=== PATIENT | female | born 1950 | race Caucasian/White ===

== ENCOUNTER → 2016-09-08 | Outpatient (CLI) | payer OTHER ==
[~2016-09-08] MED LIST: ACCURETIC 25 MG1 TAB PO; ASPIRIN 81M81 MG/TA2 PO; CYMBALTA 30MG30 MG PO; FEOSOL45 MG PO; FOLIC ACID 11 MG/TA1 PO; PHENERGAN25 MG RC; PROTONIX 40MG T40 MG PO; TURMERIC500 MG PO; ULTRAM 50MG TAB50 MG PO; VTAMINC250TA PO; ZESTRIL 20MG TA20 MG PO
[2016-09-08 10:48] LABS: ALBUMIN 3.9 gm/dL (3.5-5.0); BILIRUBIN,TOTAL 0.8 mg/dL (0.0-1.0); CALCIUM 8.9 mg/dL (8.4-10.2); CREATININE, serum 1.07 mg/dL (0.52-1.25)
== END ==
LOC: COL.LAB 09:59
PROVIDERS: Nurse Practitioner
DX: I10 Essential (primary) hypertension (principal)

== ENCOUNTER → 2017-01-08 | Outpatient (CLI) | payer MEDICARE, OTHER | LOC: COL.RAD 11:49 | DX: M79.89 Other specified soft tissue disorders (principal); Z96.642 Presence of left artificial hip joint ==

== ENCOUNTER 2017-01-10 12:25 | Observation (INO) | payer MEDICARE, OTHER ==
[~2017-01-10] VITALS: Ht 172.7 cm; Wt 145.7 kg
[2017-01-10] VITALS (10 sets, daily range): BP systolic 148–187; BP diastolic 63–89; PULSE 76–94; TEMP 97.3–97.9
[2017-01-10] MEDS ORDERED: FOLIC ACID 11 MG/TA1 PO (12:33)
[2017-01-10] MEDS ORDERED: CYMBALTA 30MG30 MG PO (12:34)
[2017-01-10] MEDS ORDERED: FEOSOL45 MG PO (12:34)
[2017-01-10] MEDS ORDERED: ACCURETIC 25 MG1 TAB PO (12:34)
[2017-01-10] MEDS ORDERED: TURMERIC500 MG PO (12:34)
[2017-01-10] MEDS ORDERED: VTAMINC250TA PO (12:35)
[2017-01-10] MEDS ORDERED: ASPIRIN 81M81 MG/TA2 PO (12:35)
[2017-01-10 14:02] LABS: BASO # 0.1 (0.0-0.2); BASO % 0.7 % (0.0-2.0); EOS % 0.6 % (0-4.0); GRAN # 4.8 (1.4-6.5); GRAN % 71.6 % (42.2-75.2); LYMPH # 1.3 (1.2-3.4); LYMPH % 19.1 % (20.0-51.0); MEAN CELL VOLUME 66 fl (80.0-100.0); MEAN CORPUSCULAR HGB CONC 29 g/dl (33.0-37.0); MEAN PLATELET VOLUME 8.3 fl (7.4-10.4); MONO # 0.5 (0.1-0.6); MONO % 7.6 % (1.7-9.3); PLATELET COUNT 344 K/mm3 (130-400); RED BLOOD COUNT 3.66 M/mm3 (4.10-5.30); REDCELL DISTRIBUTION WIDTH-CV 20.2 % (11.5-14.5); WHITE BLOOD COUNT 6.7 K/mm3 (4.8-10.8)
[2017-01-10 14:10] LABS: ADJUSTED CALCIUM 9.1 mg/dL (8.4-10.2); ALANINE AMINOTRANSFERASE 17 U/L (9-52); ALBUMIN 3.6 gm/dL (3.5-5.0); ALKALINE PHOSPHATASE 90 U/L (50-136); ANION GAP 9 mmol/L (7-16); BILIRUBIN,TOTAL 0.5 mg/dL (0.0-1.0); BLOOD UREA NITROGEN 23 mg/dL (7-17); CALCIUM 8.8 mg/dL (8.4-10.2); CARBON DIOXIDE 24 mmol/L (22-30); CHLORIDE 101 mmol/L (98-107); CREATININE, serum 1.34 mg/dL (0.52-1.25); GLUCOSE 101 mg/dL (74-106); POTASSIUM 3.8 mmol/L (3.4-5.0); SODIUM 134 mmol/L (137-145); TOTAL PROTEIN 7.9 gm/dL (6.4-8.2)
[2017-01-10 14:23] LABS: TROPONIN-I < 0.012 ng/mL (0.000-0.034)
[2017-01-10] MEDS ORDERED: PHENERGAN25 MG RC (14:36)
[2017-01-10] MEDS ORDERED: ULTRAM 50MG TAB50 MG PO (14:36)
[2017-01-10 14:43] LABS: HEMATOCRIT 24.1 % (37.0-47.0); MEAN CORPUSCULAR HEMOGLOBIN 19 pg (27.0-31.0)
[2017-01-10 15:48] LABS: RETIC % 1.6 % (0.5-3.52)
[2017-01-10 16:03] LABS: TOTAL IRON BINDING CAPACITY 283 ug/dL (265-497)
[2017-01-10 16:29] LABS: FERRITIN 21 ng/mL (11-264)
[2017-01-10 17:51] LABS: LACTATE DEHYDROGENASE 409 U/L (313-618)
[2017-01-11] VITALS (13 sets, daily range): BP systolic 128–174; BP diastolic 58–79; PULSE 72–90; TEMP 97–98.2
[2017-01-11 07:53] LABS: BASO # 0.1 (0.0-0.2); EOS # 0.1 (0.0-0.7); EOS % 2.2 % (0-4.0); GRAN # 3.6 (1.4-6.5); GRAN % 61.3 % (42.2-75.2); LYMPH # 1.6 (1.2-3.4); LYMPH % 27.2 % (20.0-51.0); MEAN CELL VOLUME 70 fl (80.0-100.0); MEAN CORPUSCULAR HGB CONC 30 g/dl (33.0-37.0); MEAN PLATELET VOLUME 8.4 fl (7.4-10.4); MONO # 0.5 (0.1-0.6); PLATELET COUNT 303 K/mm3 (130-400); RED BLOOD COUNT 3.93 M/mm3 (4.10-5.30); REDCELL DISTRIBUTION WIDTH-CV 22.1 % (11.5-14.5); WHITE BLOOD COUNT 5.9 K/mm3 (4.8-10.8)
[2017-01-11 08:00] LABS: CALCIUM 8.7 mg/dL (8.4-10.2); CREATININE, serum 1.2 mg/dL (0.52-1.25); HEMATOCRIT 27.4 % (37.0-47.0); HEMOGLOBIN 8.2 g/dl (12.5-16.0); MEAN CORPUSCULAR HEMOGLOBIN 21 pg (27.0-31.0); POTASSIUM 3.8 mmol/L (3.4-5.0)
[2017-01-11 12:00] LABS: PH 5 (5-8); SQUAMOUS EPITHELIAL 0-2 /hpf; URINE APPEARANCE Clear; URINE BACTERIA None Seen /hpf; URINE BILIRUBIN Negative (NEGATIVE); URINE BLOOD Negative (NEGATIVE); URINE COLOR Straw; URINE GLUCOSE Negative (NEGATIVE); URINE KETONE Negative (NEGATIVE); URINE RBC 0-2 /hpf; URINE UROBILINOGEN Negative (NEGATIVE); URINE WBC 0-2 /hpf
[2017-01-12 03:52] VITALS: BP 151/74; PULSE 78; TEMP 97.3
[2017-01-12 07:03] LABS: BASO # 0.1 (0.0-0.2); BASO % 1.3 % (0.0-2.0); EOS # 0.2 (0.0-0.7); EOS % 3.2 % (0-4.0); GRAN # 3.3 (1.4-6.5); GRAN % 60.8 % (42.2-75.2); LYMPH # 1.5 (1.2-3.4); LYMPH % 27.3 % (20.0-51.0); MEAN CELL VOLUME 69 fl (80.0-100.0); MEAN CORPUSCULAR HGB CONC 30 g/dl (33.0-37.0); MEAN PLATELET VOLUME 8.5 fl (7.4-10.4); MONO # 0.4 (0.1-0.6); MONO % 7.2 % (1.7-9.3); PLATELET COUNT 331 K/mm3 (130-400); RED BLOOD COUNT 4.25 M/mm3 (4.10-5.30); REDCELL DISTRIBUTION WIDTH-CV 22.4 % (11.5-14.5); WHITE BLOOD COUNT 5.4 K/mm3 (4.8-10.8)
[2017-01-12 07:07] LABS: HEMATOCRIT 29.2 % (37.0-47.0); HEMOGLOBIN 8.8 g/dl (12.5-16.0); MEAN CORPUSCULAR HEMOGLOBIN 21 pg (27.0-31.0)
[2017-01-12 07:18] LABS: CALCIUM 8.9 mg/dL (8.4-10.2); CREATININE, serum 1.12 mg/dL (0.52-1.25); POTASSIUM 4.4 mmol/L (3.4-5.0)
[2017-01-12 08:09] VITALS: BP 147/71; PULSE 75; TEMP 97.8
[2017-01-12] MEDS ORDERED: PROTONIX 40MG T40 MG PO (10:17)
[2017-01-12] MEDS ORDERED: ACCURETIC 25 MG1 TAB PO (10:23)
[2017-01-12] MEDS ORDERED: ZESTRIL 20MG TA20 MG PO (10:24)
[2017-01-12] MEDS ORDERED: FEOSOL45 MG PO (10:25)
== END 2017-01-12 14:40 | disposition home or self-care (01) ==
LOC: COL.ER 12:25 → MEDICAL 15:05
PROVIDERS: Emergency Medicine; Internal Medicine; Physician Assistant
DX: Z12.11 Encounter for screening for malignant neoplasm of colon (principal); K62.1 Rectal polyp; D50.0 Iron deficiency anemia secondary to blood loss (chronic); K22.2 Esophageal obstruction; K44.9 Diaphragmatic hernia without obstruction or gangrene; K22.5 Diverticulum of esophagus, acquired; K21.0 Gastro-esophageal reflux disease with esophagitis; Z90.710 Acquired absence of both cervix and uterus; R55 Syncope and collapse; I08.3 Combined rheumatic disorders of mitral, aortic and tricuspid valves; F41.9 Anxiety disorder, unspecified; F32.9 Major depressive disorder, single episode, unspecified; M19.90 Unspecified osteoarthritis, unspecified site; E66.9 Obesity, unspecified; I12.9 Hypertensive chronic kidney disease with stage 1 through stage 4 chronic kidney disease, or unspecified chronic kidney disease; N18.9 Chronic kidney disease, unspecified; Z82.49 Family history of ischemic heart disease and other diseases of the circulatory system; Z82.3 Family history of stroke; Z96.652 Presence of left artificial knee joint; Z96.642 Presence of left artificial hip joint
CPT/HCPCS: 99223-AI; 99232-AI; G0378; J2250; J2270; J3010; J7030; J7050; P9016

== ENCOUNTER 2017-02-16 16:45 | Inpatient (IN) | payer MEDICARE, OTHER ==
[~2017-02-16] VITALS: Ht 172.7 cm; Wt 139.7 kg
[2017-02-16] MEDS ORDERED: AMOXICILLIN875 MG PO (17:25)
[2017-02-16] MEDS ORDERED: PRINIVIL20 MG PO (17:26)
[2017-02-16] MEDS ORDERED: HCTZ12.5TAB PO (17:26)
[2017-02-16 17:57] LABS: BASO # 0.1 (0.0-0.2); BASO % 0.9 % (0.0-2.0); EOS # 0.1 (0.0-0.7); EOS % 1.4 % (0-4.0); GRAN # 5.5 (1.4-6.5); GRAN % 70.1 % (42.2-75.2); LYMPH # 1.6 (1.2-3.4); LYMPH % 20.4 % (20.0-51.0); MEAN CELL VOLUME 73 fl (80.0-100.0); MEAN CORPUSCULAR HGB CONC 30 g/dl (33.0-37.0); MONO # 0.5 (0.1-0.6); MONO % 6.9 % (1.7-9.3); PLATELET COUNT 292 K/mm3 (130-400); RED BLOOD COUNT 3.76 M/mm3 (4.10-5.30); REDCELL DISTRIBUTION WIDTH-CV 24.3 % (11.5-14.5); WHITE BLOOD COUNT 7.9 K/mm3 (4.8-10.8)
[2017-02-16 17:58] LABS: HEMATOCRIT 27.6 % (37.0-47.0); HEMOGLOBIN 8.2 g/dl (12.5-16.0); MEAN CORPUSCULAR HEMOGLOBIN 22 pg (27.0-31.0)
[2017-02-16 18:11] LABS: ADJUSTED CALCIUM 9.4 mg/dL (8.4-10.2); ALANINE AMINOTRANSFERASE 12 U/L (9-52); ALBUMIN 3.8 gm/dL (3.5-5.0); ALKALINE PHOSPHATASE 96 U/L (50-136); ANION GAP 13 mmol/L (7-16); BILIRUBIN,TOTAL 0.7 mg/dL (0.0-1.0); BLOOD UREA NITROGEN 51 mg/dL (7-17); CALCIUM 9.2 mg/dL (8.4-10.2); CARBON DIOXIDE 21 mmol/L (22-30); CHLORIDE 104 mmol/L (98-107); CREATININE, serum 2.31 mg/dL (0.52-1.25); GLUCOSE 87 mg/dL (74-106); MAGNESIUM 2.1 mg/dL (1.6-2.3); POTASSIUM 4.4 mmol/L (3.4-5.0); SODIUM 137 mmol/L (137-145); TOTAL PROTEIN 8.5 gm/dL (6.4-8.2)
[2017-02-16 18:23] LABS: B-TYPE NATRIURETIC PEPTIDE 520 pg/mL (0-125)
[2017-02-16 18:24] LABS: TROPONIN-I < 0.012 ng/mL (0.000-0.034)
[2017-02-16] MEDS ORDERED: ACCURETIC 25 MG1 TAB PO (20:01)
[2017-02-16] MEDS ORDERED: ACCUPRIL20TAB PO (20:01)
[2017-02-16] MEDS ORDERED: PRILOTC PO (20:05)
[2017-02-16 21:16] VITALS: BP 142/52; PULSE 85; TEMP 98
[2017-02-16 23:18] LABS: PH 5 (5-8); URINE APPEARANCE Hazy; URINE BACTERIA Rare /hpf; URINE BILIRUBIN Negative (NEGATIVE); URINE BLOOD Negative (NEGATIVE); URINE COLOR Yellow; URINE GLUCOSE Negative (NEGATIVE); URINE KETONE Negative (NEGATIVE); URINE RBC 0-2 /hpf; URINE WBC 0-2 /hpf
[2017-02-16 23:34] LABS: HEMATOCRIT 25.5 % (37.0-47.0); HEMOGLOBIN 7.7 g/dl (12.5-16.0)
[2017-02-17] VITALS (9 sets, daily range): BP systolic 132–154; BP diastolic 47–67; PULSE 78–98; TEMP 98–98.5
[2017-02-17 06:00] LABS: BASO # 0.1 (0.0-0.2); EOS # 0.2 (0.0-0.7); EOS % 3.1 % (0-4.0); GRAN # 2.6 (1.4-6.5); GRAN % 50.4 % (42.2-75.2); LYMPH # 1.8 (1.2-3.4); LYMPH % 35.3 % (20.0-51.0); MEAN CELL VOLUME 72 fl (80.0-100.0); MEAN CORPUSCULAR HGB CONC 30 g/dl (33.0-37.0); MEAN PLATELET VOLUME 8.5 fl (7.4-10.4); MONO # 0.5 (0.1-0.6); PLATELET COUNT 268 K/mm3 (130-400); REDCELL DISTRIBUTION WIDTH-CV 24.1 % (11.5-14.5); WHITE BLOOD COUNT 5.1 K/mm3 (4.8-10.8)
[2017-02-17 06:05] LABS: INR 1.2 (0.8-3.0)
[2017-02-17 06:17] LABS: HEMATOCRIT 23.7 % (37.0-47.0); HEMOGLOBIN 7.2 g/dl (12.5-16.0); MEAN CORPUSCULAR HEMOGLOBIN 22 pg (27.0-31.0)
[2017-02-17 06:23] LABS: CALCIUM 8.7 mg/dL (8.4-10.2); CREATININE, serum 1.91 mg/dL (0.52-1.25); MAGNESIUM 2.1 mg/dL (1.6-2.3); POTASSIUM 4.4 mmol/L (3.4-5.0)
[2017-02-17 06:45] LABS: THYROID STIMULATING HORMONE 1.53 uIU/mL (0.465-4.680)
[2017-02-17 10:48] LABS: HEMATOCRIT 23.8 % (37.0-47.0); HEMOGLOBIN 7.2 g/dl (12.5-16.0)
[2017-02-17] MEDS ORDERED: NORVASC 5MG5 MG/TAB PO (11:26)
[2017-02-17 19:46] LABS: HEMATOCRIT 30.1 % (37.0-47.0); HEMOGLOBIN 9.2 g/dl (12.5-16.0)
== END 2017-02-17 20:04 | disposition home or self-care (01) | DRG 812 ==
LOC: COL.ER 16:45 → MEDICAL 19:22
PROVIDERS: Emergency Medicine; Family Medicine; Internal Medicine
DX: D50.9 Iron deficiency anemia, unspecified (principal); N17.9 Acute kidney failure, unspecified; N39.0 Urinary tract infection, site not specified; I10 Essential (primary) hypertension; E86.0 Dehydration; Z96.652 Presence of left artificial knee joint; Z96.642 Presence of left artificial hip joint
CPT/HCPCS: 99222-AI; 99239; C9113; J2550; J7030; J7040; P9016

== ENCOUNTER 2017-05-04 11:21 | Day surgery (SDC) | payer MEDICARE ==
[2017-05-04] VITALS (10 sets, daily range): BP systolic 140–199; BP diastolic 65–102; PULSE 83–89; TEMP 98.5
[~2017-05-04] VITALS: Ht 172.8 cm; Wt 136.0 kg
[~2017-05-04 11:21] MED LIST changes: +ACCUPRIL20TAB PO; +AMOXICILLIN875 MG PO; +HCTZ12.5TAB PO; +NORVASC 5MG5 MG/TAB PO; +PRILOTC PO; +PRINIVIL20 MG PO
[2017-05-04] MEDS ORDERED: FEOSOL45 MG (11:59)
[2017-05-04 12:00] LABS: MEAN CELL VOLUME 85 fl (80.0-100.0); MEAN CORPUSCULAR HGB CONC 32 g/dl (33.0-37.0); MEAN PLATELET VOLUME 8.2 fl (7.4-10.4); PLATELET COUNT 286 K/mm3 (130-400); WHITE BLOOD COUNT 8.1 K/mm3 (4.8-10.8)
[2017-05-04] MEDS ORDERED: ZESTRIL40 MG PO (12:02)
[2017-05-04 12:03] LABS: HEMATOCRIT 33.3 % (37.0-47.0); HEMOGLOBIN 10.6 g/dl (12.5-16.0); MEAN CORPUSCULAR HEMOGLOBIN 27 pg (27.0-31.0)
[2017-05-04 12:06] LABS: CALCIUM 9.4 mg/dL (8.4-10.2); CREATININE, serum 0.84 mg/dL (0.52-1.25); POTASSIUM 4.2 mmol/L (3.4-5.0)
[2017-05-04 12:10] LABS: INR 1.1 (0.8-3.0); PROTHROMBIN TIME 12.9 SECONDS (9.7-12.8)
[2017-05-04] MEDS ORDERED: ASPIRIN 81M81 MG/TA2 PO (15:21)
[2017-05-04] MEDS ORDERED: IMDUR 60MG60 MG/TAB PO (15:22)
== END 2017-05-04 17:00 | disposition home or self-care (01) ==
LOC: COL.CAR 11:21
PROVIDERS: Internal Medicine Interventional Cardiology
DX: I25.10 Atherosclerotic heart disease of native coronary artery without angina pectoris (principal); R94.39 Abnormal result of other cardiovascular function study; I10 Essential (primary) hypertension; Z86.73 Personal history of transient ischemic attack (TIA), and cerebral infarction without residual deficits; Z82.49 Family history of ischemic heart disease and other diseases of the circulatory system; Z83.3 Family history of diabetes mellitus
CPT/HCPCS: J0360; J2250; J3010; Q9967

== ENCOUNTER → 2017-05-24 | Outpatient (CLI) | payer MEDICARE, OTHER ==
[~2017-05-24] MED LIST changes: +FEOSOL45 MG; +IMDUR 60MG60 MG/TAB PO; +ZESTRIL40 MG PO
== END ==
LOC: COL.RAD 05-01 10:00
DX: R55 Syncope and collapse (principal)
CPT/HCPCS: J7050; Q9967

== ENCOUNTER → 2017-06-19 | Outpatient (CLI) | payer MEDICARE | LOC: COL.RAD 16:24 | DX: R09.89 Other specified symptoms and signs involving the circulatory and respiratory systems (principal); R05 Cough; Z86.79 Personal history of other diseases of the circulatory system; J06.9 Acute upper respiratory infection, unspecified ==

== ENCOUNTER → 2017-08-08 | Outpatient (CLI) | payer MEDICARE ==
[~2017-08-08] VITALS: Ht 170.2 cm; Wt 137.0 kg
[~2017-08-08] MED LIST changes: +VITAMIN D3400 I1 PO
[2017-08-08 09:26] VITALS: BP 134/62; PULSE 92
== END ==
LOC: LIGHT 08:52
DX: M15.9 Polyosteoarthritis, unspecified (principal); I10 Essential (primary) hypertension; F33.9 Major depressive disorder, recurrent, unspecified; K21.9 Gastro-esophageal reflux disease without esophagitis; Z68.42 Body mass index [BMI] 45.0-49.9, adult; Z71.3 Dietary counseling and surveillance
CPT/HCPCS: G0463

== ENCOUNTER → 2017-08-13 | Outpatient (CLI) | payer MEDICARE | LOC: COL.RAD 16:56 | DX: M25.562 Pain in left knee (principal); Z96.652 Presence of left artificial knee joint ==

== ENCOUNTER → 2017-08-27 | Outpatient (CLI) | payer MEDICARE | LOC: LIGHT 14:51 | DX: Z01.818 Encounter for other preprocedural examination (principal) ==

== ENCOUNTER → 2017-08-27 | Outpatient (CLI) | payer MEDICARE | LOC: LIGHT | DX: Z01.89 Encounter for other specified special examinations (principal) ==

== ENCOUNTER → 2017-08-28 | Outpatient (CLI) | payer MEDICARE ==
[~2017-08-28] VITALS: Ht 170.2 cm; Wt 140.2 kg
[2017-08-28 16:27] VITALS: BP 152/88; PULSE 84
== END ==
LOC: LIGHT
DX: M15.9 Polyosteoarthritis, unspecified (principal); I10 Essential (primary) hypertension; F33.9 Major depressive disorder, recurrent, unspecified; K21.9 Gastro-esophageal reflux disease without esophagitis; Z68.42 Body mass index [BMI] 45.0-49.9, adult; Z71.3 Dietary counseling and surveillance
CPT/HCPCS: G0463

== ENCOUNTER → 2017-09-18 | Outpatient (CLI) | payer MEDICARE ==
[~2017-09-18] VITALS: Ht 170.2 cm; Wt 137.7 kg
[~2017-09-18] MED LIST changes: +PHENTERMINE15 MG PO
[2017-09-18 15:13] VITALS: BP 118/60; PULSE 88
== END ==
LOC: LIGHT 08:58
DX: M15.9 Polyosteoarthritis, unspecified (principal); I10 Essential (primary) hypertension; F33.9 Major depressive disorder, recurrent, unspecified; K21.9 Gastro-esophageal reflux disease without esophagitis; Z68.42 Body mass index [BMI] 45.0-49.9, adult; Z71.3 Dietary counseling and surveillance
CPT/HCPCS: G0463

== ENCOUNTER → 2017-10-23 | Outpatient (CLI) | payer MEDICARE ==
[~2017-10-23] VITALS: Ht 170.2 cm; Wt 136.3 kg
[2017-10-23 14:25] VITALS: BP 130/70; PULSE 84
== END ==
LOC: LIGHT 14:10
DX: M15.9 Polyosteoarthritis, unspecified (principal); I10 Essential (primary) hypertension; F33.9 Major depressive disorder, recurrent, unspecified; K21.9 Gastro-esophageal reflux disease without esophagitis; Z68.42 Body mass index [BMI] 45.0-49.9, adult; Z71.3 Dietary counseling and surveillance
CPT/HCPCS: G0463

== ENCOUNTER 2017-11-20 10:30 | Outpatient (RCR) | payer MEDICARE | END 2017-11-25 | disposition home or self-care (01) | LOC: MKS.ESL.PT | DX: M25.562 Pain in left knee (principal); M13.0 Polyarthritis, unspecified; Z96.652 Presence of left artificial knee joint; Z96.642 Presence of left artificial hip joint; Z68.43 Body mass index [BMI] 50.0-59.9, adult | CPT/HCPCS: G8978-GP; G8979-GP ==

== ENCOUNTER → 2017-12-12 | Outpatient (CLI) | payer MEDICARE ==
[2017-12-12 15:42] LABS: BASO # 0.1 (0.0-0.2); BASO % 1.3 % (0.0-2.0); EOS # 0.1 (0.0-0.7); EOS % 1.6 % (0-4.0); GRAN # 3.8 (1.4-6.5); GRAN % 59.1 % (42.2-75.2); LYMPH # 1.8 (1.2-3.4); LYMPH % 28.8 % (20.0-51.0); MEAN CELL VOLUME 87 fl (80.0-100.0); MEAN CORPUSCULAR HGB CONC 32 g/dl (33.0-37.0); MEAN PLATELET VOLUME 8.5 fl (7.4-10.4); MONO # 0.6 (0.1-0.6); MONO % 8.9 % (1.7-9.3); PLATELET COUNT 294 K/mm3 (130-400); RED BLOOD COUNT 3.61 M/mm3 (4.10-5.30); REDCELL DISTRIBUTION WIDTH-CV 15.7 % (11.5-14.5)
[2017-12-12 15:44] LABS: HEMATOCRIT 31.4 % (37.0-47.0); HEMOGLOBIN 9.9 g/dl (12.5-16.0); MEAN CORPUSCULAR HEMOGLOBIN 27 pg (27.0-31.0)
[2017-12-12 15:47] LABS: MUCOUS Present /lpf; PH 5 (5-8); URINE APPEARANCE Hazy; URINE BACTERIA None Seen /hpf; URINE BILIRUBIN Negative (NEGATIVE); URINE BLOOD 1+ (NEGATIVE); URINE COLOR Yellow; URINE GLUCOSE Negative (NEGATIVE); URINE KETONE Negative (NEGATIVE); URINE LEUKOCYTE ESTERASE Negative (NEGATIVE); URINE NITRATE Negative (NEGATIVE); URINE PROTEIN(semi-quant) Negative (NEGATIVE); URINE RBC 0-2 /hpf
[2017-12-12 15:48] LABS: COLLECTION METHOD CLEAN CATCH
[2017-12-12 15:54] LABS: ALBUMIN 4.1 gm/dL (3.5-5.0); BILIRUBIN,TOTAL 0.4 mg/dL (0.0-1.0); CALCIUM 9.4 mg/dL (8.4-10.2); CHOLESTEROL RISK RATIO 3.9; CREATININE, serum 1.22 mg/dL (0.52-1.25); POTASSIUM 4.7 mmol/L (3.4-5.0); TOTAL PROTEIN 8.6 gm/dL (6.4-8.2)
== END ==
LOC: COL.LAB 14:54
PROVIDERS: Registered Nurse
DX: Z01.818 Encounter for other preprocedural examination (principal); I25.10 Atherosclerotic heart disease of native coronary artery without angina pectoris; M15.0 Primary generalized (osteo)arthritis; D50.8 Other iron deficiency anemias; I10 Essential (primary) hypertension; E66.01 Morbid (severe) obesity due to excess calories

== ENCOUNTER → 2017-12-15 | Outpatient (CLI) | payer MEDICARE ==
[2017-12-15 17:19] LABS: PROTHROMBIN TIME 11.2 SECONDS (9.7-12.8)
== END ==
LOC: COL.LAB 16:18
PROVIDERS: Registered Nurse
DX: Z01.818 Encounter for other preprocedural examination (principal); I25.10 Atherosclerotic heart disease of native coronary artery without angina pectoris; M15.0 Primary generalized (osteo)arthritis; I10 Essential (primary) hypertension; D50.8 Other iron deficiency anemias

== ENCOUNTER 2017-12-25 10:00 | Outpatient (RCR) | payer MEDICARE ==
[2018-01-16] MEDS ORDERED: NORVASC 5MG5 MG/TAB PO (10:53)
[2018-01-16] MEDS ORDERED: FEOSOL45 MG PO (10:55)
[2018-01-16] MEDS ORDERED: PRINIVIL20 MG PO (10:56)
[2018-01-16] MEDS ORDERED: PRAVACHOL 20MG20 MG PO (10:58)
[2018-01-16] MEDS ORDERED: FLEXERIL 1010 MG/TAB PO (11:15)
[2018-01-16] MEDS ORDERED: HCTZ12.5TAB PO (11:16)
[2018-01-24] MEDS ORDERED: MULTIPLE VITAMI1 CAP PO (09:01)
[2018-01-24] MEDS ORDERED: VITAMIN D31000 I1 PO (09:01)
== END 2018-02-25 | disposition home or self-care (01) ==
LOC: MKS.ESL.PT
DX: M25.562 Pain in left knee (principal); M79.652 Pain in left thigh; Z96.652 Presence of left artificial knee joint; Z91.81 History of falling
CPT/HCPCS: G8979-GP; G8980-GP

== ENCOUNTER → 2017-12-25 | Outpatient (CLI) | payer MEDICARE ==
[~2017-12-25] VITALS: Ht 170.2 cm; Wt 133.8 kg
[2017-12-25 13:23] VITALS: BP 120/50; PULSE 76
== END ==
LOC: LIGHT 10:50
DX: M15.9 Polyosteoarthritis, unspecified (principal); I10 Essential (primary) hypertension; F32.9 Major depressive disorder, single episode, unspecified; K21.9 Gastro-esophageal reflux disease without esophagitis; E66.01 Morbid (severe) obesity due to excess calories; Z68.42 Body mass index [BMI] 45.0-49.9, adult; Z71.3 Dietary counseling and surveillance
CPT/HCPCS: G0463

== ENCOUNTER → 2018-01-09 | Outpatient (CLI) | payer MEDICARE | LOC: LIGHT 12-31 08:55 | DX: Z01.818 Encounter for other preprocedural examination (principal) ==

== ENCOUNTER 2018-01-16 10:23 | Day surgery (SDC) | payer MEDICARE ==
[~2018-01-16] VITALS: Ht 170.2 cm; Wt 131.6 kg
[2018-01-16] VITALS (11 sets, daily range): BP systolic 120–187; BP diastolic 62–82; PULSE 82–109; TEMP 97.4–98.4
[2018-01-16] MEDS ORDERED: NORVASC 5MG5 MG/TAB PO (10:53)
[2018-01-16] MEDS ORDERED: FEOSOL45 MG PO (10:55)
[2018-01-16] MEDS ORDERED: PRINIVIL20 MG PO (10:56)
[2018-01-16] MEDS ORDERED: PRAVACHOL 20MG20 MG PO (10:58)
[2018-01-16] MEDS ORDERED: FLEXERIL 1010 MG/TAB PO (11:15)
[2018-01-16] MEDS ORDERED: HCTZ12.5TAB PO (11:16)
[2018-01-17 03:05] VITALS: BP 149/76; PULSE 92; TEMP 98.6
[2018-01-17 07:46] VITALS: BP 153/76; PULSE 96; TEMP 97.8
[2018-01-17 12:12] VITALS: BP 156/77; PULSE 90; TEMP 97.8
[2018-01-17 15:53] VITALS: BP 158/89; PULSE 97; TEMP 98.8
== END 2018-01-17 18:34 | disposition home or self-care (01) ==
LOC: SDCO 10:23 → INPTSU 10:23 → SURG 10:23 → EDSTATUS 10:45 → SURG 10:45 → INPTSU 15:51 → SDCO 01-17 18:34 → SURG 01-17 18:34
DX: K44.9 Diaphragmatic hernia without obstruction or gangrene (principal); I10 Essential (primary) hypertension; K21.9 Gastro-esophageal reflux disease without esophagitis; D64.9 Anemia, unspecified; E88.81 Metabolic syndrome and other insulin resistance; D50.9 Iron deficiency anemia, unspecified; I25.10 Atherosclerotic heart disease of native coronary artery without angina pectoris; M15.9 Polyosteoarthritis, unspecified; F32.9 Major depressive disorder, single episode, unspecified; G47.30 Sleep apnea, unspecified; I35.0 Nonrheumatic aortic (valve) stenosis; E66.01 Morbid (severe) obesity due to excess calories; Z68.42 Body mass index [BMI] 45.0-49.9, adult; Z96.652 Presence of left artificial knee joint; Z96.642 Presence of left artificial hip joint; Z90.710 Acquired absence of both cervix and uterus; Z79.82 Long term (current) use of aspirin
CPT/HCPCS: OP; J1885; J2405; J2704; J3010; J7042; J7120

== ENCOUNTER 2018-01-24 08:52 | Observation (INO) | payer MEDICARE ==
[~2018-01-24] VITALS: Ht 170.2 cm; Wt 132.7 kg
[~2018-01-24 08:52] MED LIST changes: +FLEXERIL 1010 MG/TAB PO; +PRAVACHOL 20MG20 MG PO
[2018-01-24] MEDS ORDERED: MULTIPLE VITAMI1 CAP PO (09:01)
[2018-01-24] MEDS ORDERED: VITAMIN D31000 I1 PO (09:01)
[2018-01-24 09:22] LABS: BASO # 0.1 (0.0-0.2); BASO % 0.8 % (0.0-2.0); EOS # 0.2 (0.0-0.7); EOS % 1.7 % (0-4.0); GRAN # 9.7 (1.4-6.5); GRAN % 80.2 % (42.2-75.2); HEMOGLOBIN 10.7 g/dl (12.5-16.0); LYMPH # 1.4 (1.2-3.4); LYMPH % 11.2 % (20.0-51.0); MEAN CELL VOLUME 88 fl (80.0-100.0); MEAN CORPUSCULAR HEMOGLOBIN 28 pg (27.0-31.0); MEAN CORPUSCULAR HGB CONC 32 g/dl (33.0-37.0); MEAN PLATELET VOLUME 8.7 fl (7.4-10.4); MONO # 0.7 (0.1-0.6); MONO % 5.4 % (1.7-9.3); PLATELET COUNT 378 K/mm3 (130-400); RED BLOOD COUNT 3.86 M/mm3 (4.10-5.30); REDCELL DISTRIBUTION WIDTH-CV 14.6 % (11.5-14.5)
[2018-01-24 09:23] LABS: HEMATOCRIT 33.8 % (37.0-47.0)
[2018-01-24 09:29] LABS: PARTIAL THROMBOPLASTIN TIME 29.9 SECONDS (26.0-37.0)
[2018-01-24 09:31] LABS: ALANINE AMINOTRANSFERASE 15 U/L (9-52); ALBUMIN 4.2 gm/dL (3.5-5.0); ALKALINE PHOSPHATASE 95 U/L (50-136); ANION GAP 16 mmol/L (7-16); AST,SGOT 22 U/L (15-37); BILIRUBIN,TOTAL 0.6 mg/dL (0.0-1.0); BLOOD UREA NITROGEN 46 mg/dL (7-17); CALCIUM 9.5 mg/dL (8.4-10.2); CARBON DIOXIDE 20 mmol/L (22-30); CHLORIDE 102 mmol/L (98-107); CREATININE, serum 2.04 mg/dL (0.52-1.25); GLUCOSE 105 mg/dL (74-106); MAGNESIUM 2.8 mg/dL (1.6-2.3); PHOSPHOROUS 5.2 mg/dL (2.5-4.5); POTASSIUM 5.5 mmol/L (3.4-5.0); SODIUM 137 mmol/L (137-145); TOTAL PROTEIN 8.6 gm/dL (6.4-8.2)
[2018-01-24 09:44] LABS: TROPONIN-I < 0.012 ng/mL (0.000-0.034)
[2018-01-24 10:15] LABS: MUCOUS Present /lpf; PH 5 (5-8); SQUAMOUS EPITHELIAL 0-2 /hpf; URINE APPEARANCE Clear; URINE BACTERIA None Seen /hpf; URINE BILIRUBIN Negative (NEGATIVE); URINE BLOOD Negative (NEGATIVE); URINE COLOR Yellow; URINE GLUCOSE Negative (NEGATIVE); URINE KETONE Negative (NEGATIVE); URINE LEUKOCYTE ESTERASE Negative (NEGATIVE); URINE NITRATE Negative (NEGATIVE); URINE PROTEIN(semi-quant) Negative (NEGATIVE); URINE RBC 0-2 /hpf; URINE UROBILINOGEN Negative (NEGATIVE)
[2018-01-24 10:24] LABS: COLLECTION METHOD CATHETER
[2018-01-24 14:20] VITALS: BP 126/65; PULSE 102
[2018-01-24 15:43] VITALS: BP 137/57; PULSE 95; TEMP 98
[2018-01-24 17:02] LABS: CALCIUM 8.7 mg/dL (8.4-10.2); CREATININE, serum 1.84 mg/dL (0.52-1.25); POTASSIUM 5.6 mmol/L (3.4-5.0)
[2018-01-24 20:57] VITALS: BP 123/60; PULSE 94; TEMP 97.8
[2018-01-24 22:18] VITALS: BP 135/45; PULSE 99; TEMP 98.4
[2018-01-25 04:29] VITALS: BP 142/78; PULSE 102; TEMP 98.4
[2018-01-25 07:44] LABS: BASO # 0.1 (0.0-0.2); BASO % 0.6 % (0.0-2.0); EOS # 0.3 (0.0-0.7); EOS % 2.8 % (0-4.0); GRAN # 7.6 (1.4-6.5); GRAN % 73.3 % (42.2-75.2); LYMPH # 1.6 (1.2-3.4); LYMPH % 15.9 % (20.0-51.0); MEAN CELL VOLUME 88 fl (80.0-100.0); MEAN CORPUSCULAR HGB CONC 32 g/dl (33.0-37.0); MEAN PLATELET VOLUME 8.8 fl (7.4-10.4); MONO # 0.7 (0.1-0.6); MONO % 6.9 % (1.7-9.3); PLATELET COUNT 298 K/mm3 (130-400); RED BLOOD COUNT 3.24 M/mm3 (4.10-5.30); REDCELL DISTRIBUTION WIDTH-CV 14.8 % (11.5-14.5)
[2018-01-25 07:53] VITALS: BP 136/49; PULSE 95; TEMP 98.4
[2018-01-25 07:56] LABS: CALCIUM 8.4 mg/dL (8.4-10.2); CREATININE, serum 1.4 mg/dL (0.52-1.25); MAGNESIUM 2.4 mg/dL (1.6-2.3); POTASSIUM 4.8 mmol/L (3.4-5.0)
[2018-01-25 08:00] LABS: HEMATOCRIT 28.6 % (37.0-47.0); MEAN CORPUSCULAR HEMOGLOBIN 28 pg (27.0-31.0)
[2018-01-25 11:30] VITALS: BP 146/75; PULSE 96; TEMP 98.3
[2018-01-25 15:56] VITALS: BP 142/93; PULSE 92; TEMP 97.9
[2018-01-25 21:02] VITALS: BP 142/69; PULSE 96; TEMP 97.5
[2018-01-26 04:22] VITALS: BP 134/57; PULSE 80; TEMP 97.9
[2018-01-26 07:25] VITALS: BP 127/58; PULSE 86; TEMP 97.6
[2018-01-26 08:15] LABS: BASO # 0.1 (0.0-0.2); BASO % 0.9 % (0.0-2.0); EOS # 0.3 (0.0-0.7); GRAN # 4.1 (1.4-6.5); GRAN % 62.4 % (42.2-75.2); LYMPH # 1.5 (1.2-3.4); LYMPH % 22.1 % (20.0-51.0); MEAN CELL VOLUME 89 fl (80.0-100.0); MEAN CORPUSCULAR HGB CONC 30 g/dl (33.0-37.0); MONO # 0.6 (0.1-0.6); MONO % 9.3 % (1.7-9.3); PLATELET COUNT 252 K/mm3 (130-400); RED BLOOD COUNT 3.33 M/mm3 (4.10-5.30); REDCELL DISTRIBUTION WIDTH-CV 14.7 % (11.5-14.5)
[2018-01-26 08:22] LABS: HEMATOCRIT 29.6 % (37.0-47.0); MEAN CORPUSCULAR HEMOGLOBIN 27 pg (27.0-31.0)
[2018-01-26 08:27] LABS: CALCIUM 8.8 mg/dL (8.4-10.2); CREATININE, serum 0.99 mg/dL (0.52-1.25); MAGNESIUM 1.9 mg/dL (1.6-2.3); POTASSIUM 4.9 mmol/L (3.4-5.0)
[2018-01-26 12:18] VITALS: BP 141/69; PULSE 92; TEMP 97.9
[2018-01-26 16:00] VITALS: BP 136/72; PULSE 94
[2018-01-26 19:09] VITALS: BP 147/64; PULSE 102; TEMP 97.5
[2018-01-26 23:55] VITALS: BP 141/71; BP 152/88; PULSE 59; PULSE 63; TEMP 98.2; TEMP 98.6
[2018-01-27 04:07] VITALS: BP 152/70; PULSE 88; TEMP 98.3
[2018-01-27 07:58] VITALS: BP 137/70; PULSE 94; TEMP 98.6
[2018-01-27 11:30] VITALS: BP 149/87; PULSE 89; TEMP 97.7
== END 2018-01-27 14:08 | disposition home or self-care (01) ==
LOC: COL.ER 08:52 → MEDICAL 11:24
PROVIDERS: Emergency Medicine; Physician Assistant
DX: R55 Syncope and collapse (principal); Z98.84 Bariatric surgery status; N17.9 Acute kidney failure, unspecified; E88.81 Metabolic syndrome and other insulin resistance; E87.5 Hyperkalemia; E83.39 Other disorders of phosphorus metabolism; R19.7 Diarrhea, unspecified; D72.829 Elevated white blood cell count, unspecified; F32.9 Major depressive disorder, single episode, unspecified; F41.9 Anxiety disorder, unspecified; K21.9 Gastro-esophageal reflux disease without esophagitis; E78.5 Hyperlipidemia, unspecified; I10 Essential (primary) hypertension; G47.00 Insomnia, unspecified; M19.90 Unspecified osteoarthritis, unspecified site; D50.9 Iron deficiency anemia, unspecified; Z88.8 Allergy status to other drugs, medicaments and biological substances; Z91.048 Other nonmedicinal substance allergy status; Z96.642 Presence of left artificial hip joint; Z96.652 Presence of left artificial knee joint; Z90.710 Acquired absence of both cervix and uterus; Z82.49 Family history of ischemic heart disease and other diseases of the circulatory system
CPT/HCPCS: 99239; G0378; J2405; J7030

== ENCOUNTER → 2018-04-29 | Outpatient (CLI) | payer MEDICARE ==
[~2018-04-29] VITALS: Ht 170.2 cm; Wt 122.9 kg
[~2018-04-29] MED LIST changes: +MULTIPLE VITAMI1 CAP PO; +PRINIVIL5 MG PO; +VITAMIN D31000 I1 PO
[2018-04-29 16:34] VITALS: BP 160/98; PULSE 112
== END ==
LOC: LIGHT 04-15 13:19
DX: I10 Essential (primary) hypertension (principal); F32.9 Major depressive disorder, single episode, unspecified; K21.9 Gastro-esophageal reflux disease without esophagitis; Z98.84 Bariatric surgery status; E66.01 Morbid (severe) obesity due to excess calories; Z68.41 Body mass index [BMI] 40.0-44.9, adult; Z71.3 Dietary counseling and surveillance
CPT/HCPCS: G0463

== ENCOUNTER → 2018-09-02 | Outpatient (CLI) | payer MEDICARE ==
[~2018-09-02] VITALS: Ht 170.2 cm; Wt 114.8 kg
[~2018-09-02] MED LIST changes: +NORVASC2.5 MG
[2018-09-02 16:26] VITALS: BP 112/56; PULSE 72
== END ==
LOC: LIGHT 07-08 11:12
DX: Z98.84 Bariatric surgery status (principal); I10 Essential (primary) hypertension; F32.9 Major depressive disorder, single episode, unspecified; K21.9 Gastro-esophageal reflux disease without esophagitis; Z68.39 Body mass index [BMI] 39.0-39.9, adult; Z71.3 Dietary counseling and surveillance
CPT/HCPCS: G0463

== ENCOUNTER → 2020-01-18 | Emergency (ER) | payer MEDICARE ==
[~2020-01-18] VITALS: Ht 172.7 cm; Wt 113.6 kg
[2020-01-18 09:56] VITALS: BP 123/72; PULSE 82; TEMP 98.8
== END ==
LOC: COL.ER 09:52
DX: S82.892A Other fracture of left lower leg, initial encounter for closed fracture (principal); Z90.89 Acquired absence of other organs; W22.8XXA Striking against or struck by other objects, initial encounter; X50.1XXA Overexertion from prolonged static or awkward postures, initial encounter; Y92.009 Unspecified place in unspecified non-institutional (private) residence as the place of occurrence of the external cause

== ENCOUNTER → 2020-03-31 | Outpatient (CLI) | payer MEDICARE | LOC: MC.RAD 13:44 | DX: Z12.31 Encounter for screening mammogram for malignant neoplasm of breast (principal); Z90.710 Acquired absence of both cervix and uterus ==

== ENCOUNTER 2020-05-17 09:00 | Outpatient (RCR) | payer MEDICARE | END 2020-05-18 | disposition still patient (30) | LOC: WSPT | DX: Z74.09 Other reduced mobility (principal); R29.6 Repeated falls ==

== ENCOUNTER → 2020-05-24 | Outpatient (RCR) | payer MEDICARE | END | disposition home or self-care (01) | LOC: WSC → WSPT 05-20 09:34 → WSC 14:30 | DX: R26.9 Unspecified abnormalities of gait and mobility (principal); W19.XXXA Unspecified fall, initial encounter ==

== ENCOUNTER 2020-07-07 15:30 | Outpatient (RCR) | payer MEDICARE, OTHER | END 2020-08-24 | disposition home or self-care (01) | LOC: WSPT | DX: R26.89 Other abnormalities of gait and mobility (principal) ==

== ENCOUNTER 2021-04-07 13:26 | Outpatient (RCR) | payer OTHER | END 2021-05-20 | disposition home or self-care (01) | LOC: WSPT | DX: Z01.818 Encounter for other preprocedural examination (principal) ==

== ENCOUNTER → 2021-04-07 | Outpatient (CLI) | payer MEDICARE | LOC: COL.RAD 16:41 | DX: Z01.818 Encounter for other preprocedural examination (principal) ==

== ENCOUNTER 2021-05-18 15:10 | Outpatient (RCR) | payer MEDICARE | END 2021-05-20 | disposition home or self-care (01) | LOC: WSPT | DX: M17.11 Unilateral primary osteoarthritis, right knee (principal) ==

== ENCOUNTER → 2021-07-18 | Outpatient (RCR) | payer MEDICARE | END | disposition home or self-care (01) | LOC: WSPT → WSC 06-23 13:55 → WSPT 06-29 14:15 → WSC 07-01 13:30 → WSPT 07-04 14:15 → WSC 07-11 16:30 → WSPT 07-13 14:15 → WSC 07-15 13:30 → WSPT 16:30 | DX: M17.11 Unilateral primary osteoarthritis, right knee (principal) ==

== ENCOUNTER → 2021-08-02 11:50 | Outpatient (RCR) | payer MEDICARE | END | disposition home or self-care (01) | LOC: WSPT 07-19 15:30 | DX: M17.11 Unilateral primary osteoarthritis, right knee (principal) ==

== ENCOUNTER 2022-06-16 13:04 | Emergency (ER) | payer MEDICARE ==
[~2022-06-16] VITALS: Ht 172.7 cm; Wt 118.2 kg
[2022-06-16 13:17] VITALS: TEMP 97.5
[2022-06-16] MEDS ORDERED: PERCOCET 325 MG1 TA2 PO (16:30)
[2022-06-16 16:37] VITALS: BP 149/79; PULSE 98
== END 2022-06-16 16:57 | disposition home or self-care (01) ==
LOC: COL.ER 13:04
DX: S90.121A Contusion of right lesser toe(s) without damage to nail, initial encounter (principal); W18.30XA Fall on same level, unspecified, initial encounter; Y93.K1 Activity, walking an animal

== ENCOUNTER 2022-09-28 17:29 | Emergency (ER) | payer MEDICARE ==
[~2022-09-28] VITALS: Ht 170.2 cm; Wt 113.6 kg
[~2022-09-28 17:29] MED LIST changes: +PERCOCET 325 MG1 TA2 PO
[2022-09-28 17:55] LABS: COLLECTION METHOD CLEAN CATCH
[2022-09-28 18:00] LABS: URINE APPEARANCE Cloudy (CLEAR/HAZY); URINE BLOOD 2+ (NEGATIVE); URINE COLOR Yellow (YELLOW); URINE GLUCOSE Negative (NEGATIVE); URINE KETONE Negative (NEGATIVE); URINE NITRATE Negative (NEGATIVE); URINE PROTEIN(semi-quant) 2+ (NEGATIVE); URINE UROBILINOGEN 0.2 E.U/dL (0.2-1.0)
[2022-09-28 18:01] LABS: URINE BACTERIA None Seen /hpf (NONE SEEN); URINE RBC 20-50 /hpf (0-2)
[2022-09-28 19:02] LABS: MEAN CELL VOLUME 77 fl (80.0-100.0); MEAN CORPUSCULAR HGB CONC 29 g/dl (33.0-37.0); MEAN PLATELET VOLUME 8.4 fl (7.4-10.4); PLATELET COUNT 476 K/mm3 (130-400); RED BLOOD COUNT 3.96 M/mm3 (4.10-5.30); REDCELL DISTRIBUTION WIDTH-CV 17.1 % (11.5-14.5)
[2022-09-28 19:07] LABS: HEMATOCRIT 30.6 % (37.0-47.0); MEAN CORPUSCULAR HEMOGLOBIN 23 pg (27-31)
[2022-09-28 19:21] LABS: ALBUMIN 3.1 gm/dL (3.4-4.8); BILIRUBIN,TOTAL 0.3 mg/dL (0.2-1.2); C-REACTIVE PROTEIN 4.38 mg/dL (0.00-0.50); CALCIUM 9.2 mg/dL (8.4-10.2); CREATININE, serum 1.41 mg/dL (0.57-1.11); POTASSIUM 4.5 mmol/L (3.5-4.5); TOTAL PROTEIN 7.9 gm/dL (6.2-8.1)
[2022-09-28 19:31] LABS: BAND 8 % (0-10); EOSINOPHIL 1 % (0-4); LYMPHOCYTE 1 % (20.0-51.0); METAMYELOCYTE 1 % (0-0); NEUTROPHILS 88 % (42.0-75.2)
[2022-09-28 19:33] LABS: ANISOCYTOSIS 1+; HYPOCHROMIA 3+; MICROCYTOSIS 1+; OVALOCYTES 1+; PLATELET ESTIMATE NORMAL (NORMAL)
[2022-09-28 19:55] VITALS: BP 183/106; PULSE 102
[2022-09-28] MEDS ORDERED: MACROBID 1100 MG/CAP PO (20:01)
== END 2022-09-28 20:59 | disposition home or self-care (01) ==
LOC: COL.ER 17:29
PROVIDERS: Family Medicine
DX: A08.4 Viral intestinal infection, unspecified (principal); N39.0 Urinary tract infection, site not specified; E86.0 Dehydration; Z28.310 Unvaccinated for COVID-19
CPT/HCPCS: J2405; J7120